=== PATIENT | male | born 2000 | race Caucasian/White ===

== ENCOUNTER 2022-10-15 13:24 | Outpatient (CLI) | payer OTHER, SELFPAY ==
[2022-10-15 16:24] LABS: Liquefaction Semen Complete in 30 min. (<30 minutes); Semen Color Opaque (Grey-opaque); Semen Immotility 50 %; Semen Morphology Result to Follow; Semen Non-Progressive Motility 20 %; Semen Progressive Motility 30 % (>32); Semen Total Motility 50 (>40% (PM+NP)); Semen Viscosity Not Increased (Not Increa.); Volume Semen 1 mL (1.5-5.0); pH Semen 8.5 (7.2-8.0)
[2022-10-23 17:41] LABS: Fructose, Semen 276 mg/dL (150-600)
== END 2022-10-15 13:25 | disposition home or self-care (01) ==
LOC: CHSLAB 13:28
PROVIDERS: Visit Provider Advanced Practice Midwife
DX: Z30.09 Encounter for other general counseling and advice on contraception (principal)
CPT/HCPCS: 82757; 88160; 89320

== ENCOUNTER → 2023-11-03 15:54 | Outpatient (CLI) | payer OTHER, MEDICAID, SELFPAY ==
--- NOTE | ~2023-11-03 | XR_ITS ---
XR chest 2V DATE: 11/03/2023 16:33 INDICATION: Chronic cough. Nonsmoker. TECHNIQUE: 2 views COMPARISON: None FINDINGS: Normal heart size. No hilar or mediastinal enlargement. No pulmonary infiltrate or consolid ation, pleural effusion or pulmonary vascular congestion or pneumothorax is detected. Mild thoracolumbar dextroscoliosis. IMPRESSION: No active cardiopulmonary disease Reviewed, dictated and finalized at location [facility]
== END ==
PROVIDERS: PCP Family Medicine; Visit Provider Nurse Practitioner Family
DX: R05.3 Chronic cough (principal)
CPT/HCPCS: 71046

== ENCOUNTER 2023-11-19 09:10 | Outpatient (CLI) | payer OTHER, MEDICAID, SELFPAY ==
--- NOTE | 2023-11-20 11:34 | P.PCNPFT_ITS ---
PFT Procedure Performed PFT Procedure Performed Spirometry with Pre/Post Bronchodilator Plethysmography (Lung Vol) Diffusing Cap (DLCO) Flow Vol Loop PFT Interpretation Lung volumes were assessed using the body plethysmography technique. The reduced expiratory reserve volume is associated with obesity. The remaining lung volumes indicate a mildly decreased total lung capacity at 76% of the predicted value. Spirometry revealed normal expiratory flow rates and a standard FEV1 to FVC ratio of 84%. There was no significant increase in expiratory flow rates after the administration of a bronchodilator. The lung diffusion capacity is mildly decreased at 66% predicted. The tracing volume versus time indicated subpar effort. A clinical correlation is recommended. Impression: The patient's suboptimal effort might account for the mild restrictive respiratory disease. There is also a mild reduction in lung d iffusion capacity.
== END 2023-11-19 09:11 | disposition home or self-care (01) ==
LOC: ANHPFT 09:13
PROVIDERS: PCP Family Medicine; Visit Provider Nurse Practitioner Family
DX: R05.3 Chronic cough (principal)
CPT/HCPCS: 94060; 94726; 94729